=== PATIENT | female | born 1955 | race Caucasian/White ===

== ENCOUNTER 2024-07-17 10:46 | Outpatient (CLI) | payer MEDICARE ==
[2024-07-17 12:56] LABS: #Basophils 0.03 10x3/uL (0.0-0.2); #Eosinophils 0.06 10x3/uL (0.0-0.5); #Monocytes 0.48 10x3/uL (0.0-1.1); #Neutrophils 3.52 10x3/uL (1.5-8.4); %Basophils 0.5 % (0.0-2.0); %Lymphocytes 31.7 % (18.0-47.0); %Neutrophils 58.5 % (40.0-75.0); Hematocrit 49.8 % (34.9-44.5); Mean Corpuscular HGB CONC 32.1 g/dL (32.0-36.0); Mean Corpuscular Hemoglobin 29.1 pg (27.0-33.0); Mean Corpuscular Volume 90.5 fL (81.6-98.3); Mean Platelet Volume 9.9 fL (7.4-10.4); Platelet Count 194 10x3/uL (150-450); RBC Distribution Width 13.9 % (11.5-14.5)
[2024-07-17 13:13] LABS: Anion Gap 14 mmol/L (10-20); BUN (Urea Nitrogen) 27 mg/dL (9.8-20.1); Calc. Creatinine Clearance 0 mL/min (70-130); Calcium 9.6 mg/dL (7.8-10.44); Carbon Dioxide 25 mmol/L (23-31); Chloride 105 mmol/L (98-107); Estimated GFR 80; Glucose 89 mg/dL (80-115); Potassium 4.4 mmol/L (3.5-5.1); Sodium 140 mmol/L (136-145)
== END 2024-07-17 10:47 | disposition home or self-care (01) ==
LOC: CSHLAB 10:46
PROVIDERS: ATTEND Specialist
DX: Z01.818 Encounter for other preprocedural examination (principal); C50.911 Malignant neoplasm of unspecified site of right female breast
CPT/HCPCS: 71046; 80048; 85025; 93005; 93010

== ENCOUNTER 2024-07-21 06:58 | Day surgery (SDC) | payer MEDICARE ==
[2024-07-17 11:24] VITALS: BMI 26.9
[2024-07-21] MEDS ORDERED: Acetaminophen 500 MG TAB ONE (07:39)
[2024-07-21] MEDS ORDERED: Midazolam HCl 2 mg/2 ml Vial ONE ×2 (08:43→08:45)
[2024-07-21] MEDS ORDERED: Ketorolac Tromethamine 30 MG (1 mL) VIAL ONE (08:43)
[2024-07-21] MEDS ORDERED: PROPOFOL 20 ML ONE (08:45)
[2024-07-21] MEDS ORDERED: Lidocaine 1% PF 5 ML VIAL ONE (08:45)
[2024-07-21] MEDS ORDERED: Ondansetron PF 4 MG/2 ML Vial ONE (08:45)
[2024-07-21] MEDS ORDERED: Fentanyl 250 MCG/5 ML VIAL ONE (08:45)
[2024-07-21] MEDS ORDERED: Dexamethasone 4 mg/ml Vial ONE (08:45)
[2024-07-21] MEDS ORDERED: Lidocaine 2% MPF 10 ML AMP (For Epidural Use) ONE (08:49)
[2024-07-21] MEDS ORDERED: Isosulfan Blue 50 MG/5 ML VIAL ONE (08:50)
[2024-07-21] MEDS ORDERED: Bupivacaine/Epinephrine 0.25% 30 ML VIAL ONE (08:50)
[2024-07-21] MEDS ORDERED: CEFAZOLIN 2 GM VIAL ONE (09:12)
[2024-07-21] MEDS ORDERED: ePHEDrine Sulfate 50 MG/10 ML VIAL ONE (09:35)
[2024-07-21] MEDS ORDERED: Lidocaine 1% w/Epinephrine 1:200K 30 ML VIAL ONE (10:48)
[2024-07-21] MEDS ORDERED: Sevoflurane 250 ML INH ANEST BOTTLE ONE (10:50)
[2024-07-21] MEDS ORDERED: Triple Antibiotic Oint 1 GM Packet ONE (11:06)
== END 2024-07-21 12:50 | disposition home or self-care (01) ==
LOC: CSHSDC 06:58
PROVIDERS: ATTEND Specialist
PROC: 0H9T3ZX Drainage of Right Breast, Percutaneous Approach, Diagnostic (ICD-10-PCS; principal; 2024-07-21)
DX: C50.911 Malignant neoplasm of unspecified site of right female breast (principal); E78.00 Pure hypercholesterolemia, unspecified; Z90.710 Acquired absence of both cervix and uterus; Z87.891 Personal history of nicotine dependence; Z88.5 Allergy status to narcotic agent; Z79.899 Other long term (current) drug therapy
CPT/HCPCS: 19083; 76098; 78195; A6258; A9541; C1713; J1100; J1885; J2250; J2405; J2704; J3010; Q9968; 88304; 88307